=== PATIENT | male | born 1975 | race Two or more races ===

== ENCOUNTER 2021-03-07 13:20 | Emergency (ER) | payer OTHER ==
[~2021-03-07] VITALS: Ht 175.3 cm; Wt 89.5 kg
[2021-03-07] MEDS ORDERED: IV NORMAL SALINE 1000ML BAG 1,000 ML IV SCH (13:45)
[2021-03-07] MEDS ORDERED: KETOROLAC 30 MG/ML VIAL. IVP ONE (13:45)
--- NOTE | 2021-03-07 13:51 | PHYS DOC ---
Past Medical History Past Surgical History: No Surgical History General Adult EDM: Chief Complaint: BACK PAIN - NO INJURY HPI: HPI: Patient is a 45-year-old male who presents to the emergency department for a 1 day history of low back pain. Patient rates pain 7 out of 10. No treatment prior to arrival. Patient reports that he has a history of kidney stones with his last kidney stones being in 2018. Patient reports that this feels similar but more severe. Patient reports that his low back pain does radiate into the back of his legs. He is also reporting nausea. Patient denies any loss of bowel or bladder, numbness or tingling in his extremities, saddle anesthesias, injury, heavy lifting, dysuria, hematuria, urinary frequency or urgency. Review of Systems: Review of Systems: GI: See HPI : See HPI Musculoskeletal: See HPI Neurologic: See HPI Heart Score: C/O Chest Pain: N/A Risk Factors: Risk Factors: DM, Current or recent (<one month) smoker, HTN, HLP, family history of CAD, obesity. Risk Scores: Score 0 - 3: 2.5% MACE over next 6 weeks - Discharge Home Score 4 - 6: 20.3% MACE over next 6 weeks - Admit for Clinical Observation Score 7 - 10: 72.7% MACE over next 6 weeks - Early Invasive Strategies Allergies: Allergies: Allergies Coded Allergies Type Severity Reaction Last Updated Verified No Known Drug Allergies 03/07/21 No Physical Exam: PE: Constitutional: Well developed, well nourished, no acute distress, non-toxic appearance. [] HENT: Normocephalic, atraumatic, bilateral external ears normal, oropharynx moist, no oral exudates, nose normal. [] Eyes: PERRL, EOMI, conjunctiva normal, no discharge. [] Neck: Normal range of motion, no tenderness, supple, no stridor. [] Cardiovascular:Heart rate regular rhythm, no murmur [] Lungs & Thorax: Bilateral breath sounds clear to auscultation [] Abdomen: Bowel sounds normal, soft, no tenderness, no masses, no pulsatile masses. [] Skin: Warm, dry, no erythema, no rash. [] Back: No bony spinal tenderness, bilateral paraspinal lumbar tenderness with palpation, normal range of motion no CVA tenderness. [] Extremities: No tenderness, no cyanosis, no clubbing, ROM intact, no edema. [] Neurologic: Alert and oriented X 3, normal motor function, normal sensory function, no focal deficits noted, patient moving all four extremities equally and ambulatory with a steady gait. [] Psychologic: Affect normal, judgement normal, mood normal. [] Current Patient Data: Vital Signs: Vital Signs Date Time Temp Pulse Resp B/P (MAP) Pulse Ox O2 Delivery O2 Flow Rate FiO2 03/07/21 13:29 98.7 97 16 119/98 (105) 99 Room Air 98.7 EKG: EKG: [] Radiology/Procedures: Radiology/Procedures: []PROCEDURE: CT LUMBAR SPINE RECONSTRUCTION CT abdomen pelvis without contrast and CT lumbar spine dated 03/07/2021. COMPARISON: None. CLINICAL INDICATION: Back pain. History of stones. TECHNIQUE: Contiguous axial imaging of the abdomen pelvis performed without the administration of IV or oral contrast. In addition, axial imaging of lumbar spine acquired with thin cut coronal and sagittal reconstruction. One or more of the following individualized dose reduction techniques were utilized for this examination: 1. Automated exposure control 2. Adjustment of the mA and/or kV according to patient size 3. Use of iterative reconstruction technique. FINDINGS: Heart size within normal limits. No pericardial effusion. Imaged portions of the lung bases are clear. Solid abdominal viscera not well evaluated in the absence of contrast material. Vague rounded areas of low density in the right and left lobe liver measuring 5 to 6 mm in size each. Gallbladder is unremarkable. Spleen is normal in size. Pancreas, adrenal glands and kidneys are unremarkable. No stone or hydronephrosis. Unopacified GI tract normal in caliber and contour. No bowel wall thickening. No inflammatory stranding in the mesentery. The appendix is normal in caliber. Images the pelvis show nondistended urinary bladder. Prostate gland is normal in size. No free fluid or lymphadenopathy. Evidence of prior right inguinal hernia repair. Small umbilical hernia containing only fat. Bone windows show no acute findings. Images of the lumbar spine show straightening of the normal lumbar lordosis. Sagittal alignment is otherwise anatomic. Vertebral body heights are maintained. Posterior element are intact. No evidence of fracture. Mild endplate hypertrophic changes. Mild arthrosis lower lumbar apophyseal joints. There is a small central disc herniation at L4-L5 the results in mild central stenosis. Mild multilevel facet arthropathy. Mild to moderate bilateral foraminal narrowing at the L4-L5 and L5-S1 levels. IMPRESSION: 1. No acute abnormality of abdomen or pelvis. Normal appendix. 2. There are couple of small vague low-density foci in the liver that are indete rminate but statistically likely benign. Follow-up imaging if indicated. 3. Linear stranding at the right inguinal region, likely related to prior hernia repair. 4. No evidence of lumbar spine fracture or malalignment. 5. Mild lower lumbar spondylosis. Electronically signed by: Shannon Perez MD (03/07/2021 3:06 PM) [facility] [place] and SIGNED BY: SHANNON PEREZ MD DATE: 03/07/21 [id number] 0 Course & Med Decision Making: Course & Med Decision Making Pertinent Labs and Imaging studies reviewed. (See chart for details) [] Patient presents to the emergency department for bilateral low back pain that radiates into his legs. Patient does have a history of kidney stones and states that this feels similar but more severe. He is also reporting nausea. Patient denies any loss of bowel or bladder, saddle anesthesias or numbness or tingling in his extremities. He denies any injury or heavy lifting. Patient denies any urinary complaints. Work-up in the ER consisted of blood work, urinalysis, imaging of lumbar spine and abdomen and pelvis to rule out kidney stone versus low back pain with sciatica. Patient had mild leukocytosis with a white blood cell count of 14.7, could be 2 episodes of vomiting. Patient was noted to be hypokalemic and this was replaced in the ER. Patient has had no active vomiting in the ER and is tolerating PO intake. CT imaging of abdomen/pelvis and lumbar spine were unremarkable and showed no acute findings. Patient's urinalysis showed trace blood, 5-10 white blood cells and few bacteria, patient will be treated with an antibiotic for urinary tract infection. Patient will be advised to take anti-inflammatory medications and he will be discharged home with a mus ridge relaxer for his lumbar back pain. Patient's vital signs are stable, he is not tachycardic, afebrile and in no acute distress. Dragon Disclaimer: Dragon Disclaimer: This electronic medical record was generated, in whole or in part, using a voice recognition dictation system. Departure Departure Impression: Primary Impression: Back pain Qualified Codes: M54.42 - Lumbago with sciatica, left side; M54.41 - Lumbago with sciatica, right side Additional Impression: Urinary tract infection Qualified Codes: N30.01 - Acute cystitis with hematuria Disposition: HOME / SELF CARE / HOMELESS Condition: GOOD Patient Instructions: Back Pain, Adult, Urinary Tract Infection Additional Instructions: You are seen in the emergency department today for back pain. You were noted to have a urinary tract infection which will be treated with an antibiotic. Please start and finish the antibiotic completely. Increase your fluids and avoid bladder irritants like caffeine, sugary beverages and alcohol. Your potassium level was also low in the ER, this could be due to your nausea and vomiting. Please make sure that you are eating potassium rich foods at home like green leafy vegetables and bananas. CT imaging of your abdomen/pelvis and lumbar spine did not show any acute findings, you are not noted to have any kidney stones. For your back pain please take anti-inflammatory medications like ibuprofen or naproxen at home. You are being discharged home with a muscle relaxer. Please take this as directed. This medication may cause drowsiness so do not take when you need to be alert, driving a vehicle or with alcohol. Please follow-up with your primary care provider tomorrow regarding your ER visit. Please return to the emergency department if you develop worsening of your back pain, loss of bowel or bladder, numbness or tingling in your groin or down your legs, intractable nausea or vomiting, high fevers refractory to treatment or any new or worsening concerns. Scripts Sulfamethoxazole/Trimethoprim (BACTRIM DS TABLET) 1 Each Tablet 1 TAB PO BID for 14 Days, #28 TAB 0 Refills Prov: KIM RIZVI APRN 03/07/21 Cyclobenzaprine Hcl (CYCLOBENZAPRINE HCL) 5 Mg Tablet 1 TAB PO TID for 7 Days, #21 TAB 0 Refills Prov: KIM RIZVI APRN 03/07/21 KIM RIZVI APRN Mar 07, 2021 13:51
[2021-03-07 14:00] LABS: BILIRUBIN,URINE SMALL (NEG); CLARITY,URINE CLEAR; COLOR,URINE YELLOW; NITRITE,URINE NEGATIVE (NEG); PH,URINE 5.5 (<5.0-8.0); PROTEIN,URINE 100 mg/dL (NEG-TRACE); UROBILINOGEN,URINE 0.2 mg/dL (0.2 mg/dL)
[2021-03-07] MEDS ORDERED: ONDANSETRON PF 4 MG/2 ML VIAL. IVP ONE (14:00)
[2021-03-07 14:10] LABS: BASO # 0.1 x10^3/uL (0.0-0.2); BASO % 0 % (0-3); EOS % 0 % (0-3); HEMATOCRIT 47.5 % (39.0-53.0); HEMOGLOBIN 15.8 g/dL (13.0-17.5); LYMPH # 1.1 x10^3/uL (1.0-4.8); LYMPH % 8 % (24-48); MEAN CORPUSCULAR HEMOGLOBIN 28 pg (25-35); MEAN CORPUSCULAR HGB CONC 33 g/dL (31-37); MEAN CORPUSCULAR VOLUME 83 fL (79-100); MONO # 1.6 x10^3/uL (0.0-1.1); MONO % 11 % (0-9); NEUT # 11.8 x10^3/uL (1.8-7.7); NEUT % 81 % (31-73); PLATELET COUNT 332 x10^3/uL (140-400); RED BLOOD COUNT 5.75 x10^6/uL (4.30-5.70); WHITE BLOOD COUNT 14.7 x10^3/uL (4.0-11.0)
[2021-03-07 14:19] LABS: HYALINE CASTS, URINE MODERATE /HPF
[2021-03-07 14:21] LABS: GRANULAR CASTS,URINE OCCASIONAL /HPF
[2021-03-07 14:25] LABS: BACTERIA,URINE FEW /HPF (0-FEW)
[2021-03-07 14:32] LABS: ALBUMIN 3.8 g/dL (3.4-5.0); ALBUMIN/GLOBULIN RATIO 0.8 (1.0-1.7); CALCIUM 8.7 mg/dL (8.5-10.1); CREATININE 1.3 mg/dL (0.7-1.3); GFR 59.7; TOTAL BILIRUBIN 0.3 mg/dL (0.2-1.0); TOTAL PROTEIN 8.5 g/dL (6.4-8.2)
[2021-03-07 14:34] LABS: POTASSIUM 2.9 mmol/L (3.5-5.1)
[2021-03-07] MEDS ORDERED: POTASSIUM CHLORIDE 20 MEQ TABLET.ER. PO ONE (14:45)
--- NOTE | 2021-03-07 15:09 | RAD ---
CT abdomen pelvis without contrast and CT lumbar spine dated 03/07/2021. COMPARISON: None. CLINICAL INDICATION: Back pain. History of stones. TECHNIQUE: Contiguous axial imaging of the abdomen pelvis performed without the administration of IV or oral con trast. In addition, axial imaging of lumbar spine acquired with thin cut coronal and sagittal reconst ruction. One or more of the following individualized dose reduction techniques were utilized for this examinat ion: 1. Automated exposure control 2. Adjustment of the mA and/or kV according to patient size 3. Use of iterative reconstruction technique. FINDINGS: Heart size within normal limits. No pericardial effusion. Imaged portions of the lung bases are clear . Solid abdominal viscera not well evaluated in the absence of contrast material. Vague rounded areas o f low density in the right and left lobe liver measuring 5 to 6 mm in size each. Gallbladder is unrem arkable. Spleen is normal in size. Pancreas, adrenal glands and kidneys are unremarkable. No stone or hydronep hrosis. Unopacified GI tract normal in caliber and contour. No bowel wall thickening. No inflammatory strandi ng in the mesentery. The appendix is normal in caliber. Images the pelvis show nondistended urinary bladder. Prostate gland is normal in size. No free fluid or lymphadenopathy. Evidence of prior right inguinal hernia repair. Small umbilical hernia containing only fat. Bone windows show no acute findings. Images of the lumbar spine show straightening of the normal lumb ar lordosis. Sagittal alignment is otherwise anatomic. Vertebral body heights are maintained. Posteri or element are intact. No evidence of fracture. Mild endplate hypertrophic changes. Mild arthrosis lower lumbar apophyseal joints. There is a small c entral disc herniation at L4-L5 the results in mild central stenosis. Mild multilevel facet arthropat hy. Mild to moderate bilateral foraminal narrowing at the L4-L5 and L5-S1 levels. IMPRESSION: 1. No acute abnormality of abdomen or pelvis. Normal appendix. 2. There are couple of small vague low-density foci in the liver that are indeterminate but statistic ally likely benign. Follow-up imaging if indicated. 3. Linear stranding at the right inguinal region, likely related to prior hernia repair. 4. No evidence of lumbar spine fracture or malalignment. 5. Mild lower lumbar spondylosis. Electronically signed by: Everardo Perez MD (03/07/2021 3:06 PM) [facility]
[2021-03-07] MEDS ORDERED: CYCL5TAB PO (15:17)
[2021-03-07] MEDS ORDERED: CEPH500T PO (15:17)
[2021-03-07] MEDS ORDERED: SULF1TAB24 PO (15:19)
[2021-03-07 15:35] VITALS: BP 147/101
== END 2021-03-07 15:45 | disposition home or self-care (01) ==
LOC: ER 14:21
DX: N30.01 Acute cystitis with hematuria (principal); M54.41 Lumbago with sciatica, right side; M54.42 Lumbago with sciatica, left side; Z87.442 Personal history of urinary calculi
CPT/HCPCS: 36415; 74176; 80053; 81001; 83735; 85025; 87086; 96361; 96374; 96375; 99284; J1885; J2405; J7030